=== PATIENT | female | born 1950 | race Caucasian/White ===

== ENCOUNTER 2016-07-15 06:43 | Emergency (ER) | payer MEDICARE, MEDICAID ==
--- NOTE | 2016-07-17 03:47 | ER ---
ADMIT: 07/15/2016 RM/LOC: ER [facility] MR#: [id number] [facility] [address] [place], [place] [id number] JAVY CORONEL [address] [place] [id number] Emergency Room Report SEX: F AGE: 65 : 1950 DATE: 07/15/2016 TIME: 0643 hours. Please refer to my T-sheet for complete H and P. HISTORY OF PRESENT ILLNESS: Briefly, the patient is a 65-year-old, who comes in with 2 weeks of pain in her left leg. She said, she fell yesterday, she wanted her ankle looked at also. She also says she has high blood pressure. She does not take her medications for which she comes in for evaluation. No other complaints. Hurts worse when she walks. PHYSICAL EXAMINATION: VITAL SIGNS: Blood pressure is 245/128, pulse 87, respirations 24, temp 97.2, sats 95%. GENERAL: No acute distress. HEENT: Grossly normal. LUNGS: Clear. HEART: Regular. ABDOMEN: Soft. EXTREMITIES: She has some diffuse tenderness of her left leg from the buttocks extending down towards her ankle. She says her ankle seems to be the worst. She is neurovascularly intact distally. No bony prominence or tenderness. No erythema or redness. EMERGENCY DEPARTMENT COURSE: I did a Doppler of her left lower extremity, it was negative for DVT. CBC, normal. Chemistries normal except BUN 26, glucose 112, creatinine 1.4. An x-ray of her left ankle was also negative for fracture read by myself. I gave her lisinopril 10 p.o., two [place] 5 p.o. Her recheck blood pressure was 190/104. She was feeling little bit better and was ready for discharge. ASSESSMENT: 1. Left leg pain. 2. Hypertension with poor control noncompliance. PLAN: I wrote her script for lisinopril 10 mg a day, I gave her 30. Tylenol, Motrin for leg. Return if worse. I want her to follow up with Dr. Boswell this week. Devyn Manzano MD/ soraya JOB #: [id number] CC: Ramiro Raymundo MD, Attending Physician
== END 2016-07-15 08:20 | disposition home or self-care (01) ==
LOC: ER 06:43
DX: M79.605 Pain in left leg (principal); I10 Essential (primary) hypertension; Z79.82 Long term (current) use of aspirin

== ENCOUNTER → 2016-08-05 | Outpatient (CLI) | payer MEDICARE, MEDICAID | END | disposition home or self-care (01) | LOC: RAD.S 10:50 | DX: Z12.31 Encounter for screening mammogram for malignant neoplasm of breast (principal); Z80.3 Family history of malignant neoplasm of breast ==